=== PATIENT | male | born 1980 | race African-American/Black ===

== ENCOUNTER 2023-07-13 12:10 | Emergency (ER) | payer MEDICAID, OTHER ==
[~2023-07-13] VITALS: Ht 182.9 cm; Wt 101.1 kg
[2023-07-13 12:19] VITALS: BP 145/94; RESP 19; O2SAT 99
[2023-07-13 12:59] LABS: Urine Bacteria None Seen /hpf (None Seen); Urine WBC None Seen /hpf (0 - 3)
[2023-07-13 13:06] LABS: Hematocrit 41.8 % (41.0-53.0); Hemoglobin 14.6 g/dL (13.5-17.5); Mean Corpuscular Hemoglobin 33.4 pg (28.0-32.0); Mean Corpuscular Volume 95.5 fL (80.0-100.0); Red Blood Cells 4.37 10^6/uL (4.5-5.90); Red Cell Distribution Width 13.3 % (11.8-14.3); White Blood Cell 5.4 10^3/uL (4.4-10.8)
[2023-07-13 13:13] LABS: Urine Blood Negative /uL (Negative); Urine Clarity Clear (Clear); Urine Color Yellow (Yellow); Urine Protein, UAD 1+ (Negative); Urine Specific Gravity 1.013 (1.001-1.035); Urine Urobilinogen OVER mg/dL (Negative)
[2023-07-13 13:18] VITALS: PULSE 88
[2023-07-13 13:27] LABS: Alanine Aminotransferase 92 U/L (7-40); Albumin 4.6 g/dL (3.2-4.8); Alkaline Phosphatase 85 U/L (46-116); Anion Gap 6 (5-15); Aspartate Aminotransferase 98 U/L (13-40); BUN/Creatinine Ratio 7.3 (10.0-20.0); Blood Urea Nitrogen 6 mg/dL (9-23); Calcium 9.6 mg/dL (8.5-10.1); Carbon Dioxide 30 mmol/L (20-30); Chloride 99 mmol/L (98-107); Glucose 107 mg/dL (74-106); Potassium 3.2 mmol/L (3.5-5.1); Sodium 135 mmol/L (136-145)
[2023-07-13 13:28] LABS: Bilirubin, Total 2.5 mg/dL (0.2-1.0); Total Protein 8.5 g/dL (5.7-8.2)
[2023-07-13 13:32] LABS: Basophils % (manual) 0 (0.0-2.0); Blast Cells 0; Eosinophils % (manual) 0 (0-7); Metamyelocytes % 0; Myelocytes % 0; Promyelocytes % 0; Reactive Lymphocytes 0
[2023-07-13 17:08] LABS: Band Neutrophils % (manual) 5; Lymphocytes % (manual) 26 (10.0-50.0); Monocytes % (manual) 14 (0-12); Platelet Estimate Decreased
[2023-07-13] MEDS ORDERED: PANTOPRAZOLE 40 MG/10 ML VIAL INJ IV ONE (17:30)
[2023-07-13] MEDS ORDERED: MORPHINE SULFATE 4 MG/ML SYR/VIAL IV ONE (17:30)
[2023-07-13] MEDS ORDERED: ONDANSETRON HCL 4 MG/2 ML VIAL IV ONE (17:30)
== END 2023-07-13 18:55 | disposition left against medical advice (07) ==
LOC: ER 12:10
DX: I16.0 Hypertensive urgency (principal); I10 Essential (primary) hypertension; K82.8 Other specified diseases of gallbladder; R07.9 Chest pain, unspecified; F17.210 Nicotine dependence, cigarettes, uncomplicated; F12.10 Cannabis abuse, uncomplicated
CPT/HCPCS: 36415; 71045; 76705; 80053; 81001; 83690; 84484; 85007; 85027; 85379; 93005